=== PATIENT | female | born 1935 | race Caucasian/White ===

== ENCOUNTER 2016-04-21 05:41 | Inpatient (IN) | payer MEDICARE, BC ==
[~2016-04-21 05:41] MED LIST: ADULT LOW DOSE81 MG PO; ASPIRIN EC LOW81 MG PO; ASPIRIN81 M1 PO; ATENOLOL100 MG; ATENOLOL50 M1 PO; CLARITIN10 M8 PO; COUMADIN2 MG; COUMADIN3 M1 PO; COUMADIN3 MG; COUMADIN3 MG PO; COUMADIN5 MG; DIGOXIN125 MC1 PO; DILTIAZEM ER180 MG PO; DILTIAZEM HCL240; DIOVAN160 M1 PO; FOSAMAX70 M1 PO; HYDROCHLOROTHIA25 MG; LANOXIN125 MC3 PO; LEVAQUIN250 MG PO; LISINOPRIL10 MG; LISINOPRIL20 MG; LOVENOX100 MG/1 M SC; MACROBID 100 M100 M1 PO; NUCYNTA50 MG PO; OMEPRAZOLE20 M3 PO; OMEPRAZOLE20 M4 PO; PRILOSEC20 MG; PYRIDIUM200 MG PO; TENORMIN50 M1 PO; TYLENOL EXTRA500 M1 PO; TYLENOL500 MG PO; ULTRACET TABLET1 TAB PO; VITAMIN D32000 UNI3 PO; ZOCOR40 M1 PO; [UNRECOGNIZED DRUG - OTHER]
[2016-04-21 06:29] LABS: PROTHROMBIN TIME 11.3 SECONDS (9.0-13.6)
[2016-04-21 07:02] LABS: URINE BILIRUBIN NEGATIVE (NEG); URINE BLOOD NEGATIVE (NEG); URINE GLUCOSE (UA) NEGATIVE (NEG); URINE KETONE NEGATIVE (NEG); URINE LEUKOCYTE ESTERASE POSITIVE (NEG); URINE NITRITE NEGATIVE (NEG); URINE PROTEIN MODERATE (NEG)
[2016-04-21 07:04] LABS: URINE APPEARANCE CLEAR; URINE COLOR YELLOW
[2016-04-21 07:13] LABS: URINE RBC 0-2 /[HPF] (0-5)
[2016-04-22 05:58] LABS: BASO % 0.1 % (0-2); HCT-HEMATOCRIT 37.1 % (34.0-49.0); HGB-HEMOGLOBIN 11.6 gm/dl (12.0-15.5); IMMATURE GRANULOCYTES ABSOLUTE 0.02 tho/cmm (0-0.03); IMMATURE GRANULOCYTES PERCENT 0.3 % (0-0.3); LYMPH % 9.8 % (20-45); LYMPH ABSOLUTE COUNT 0.8 tho/cmm (0.8-4.5); MCH (MEAN CORPUSCULAR HGB) 28.3 pg (28.0-32.0); MCHC MEAN CORPUSCULAR HGB CONC 31.3 % (32.0-36.0); MCV (MEAN CELL VOLUME) 90.5 fl (82.0-96.0); MEAN PLATELET VOLUME 10.8 cmc (9.4-12.4); MONO % 14.4 % (0-12); MONOCYTE ABSOLUTE COUNT 1.2 tho/cmm (0.0-1.2); NEUTROPHILS % 75.4 % (40-80); PLATELET COUNT 210 tho/cmm (150-450); RED CELL DISTRIBUTION WIDTH 15.6 % (12.4-16.4)
[2016-04-23] MEDS ORDERED: ULTRAM50 M1 PO (15:57)
[2016-04-23] MEDS ORDERED: TYLENOL325 M2 PO (15:59)
[2016-08-18] MEDS ORDERED: COUMADIN3 M1 PO (21:49)
[2016-08-19] MEDS ORDERED: KEFLEX500 M4 PO (00:42)
[2016-08-19] MEDS ORDERED: NORCO 5-325 TA1 EACH PO (00:42)
== END 2016-04-23 18:00 | DRG 470 ==
LOC: SHSC 05:41 → ORE 07:37 → PACU 09:37 → 5EA 10:00
PROC: 0SRD0J9 Replacement of Left Knee Joint with Synthetic Substitute, Cemented, Open Approach (ICD-10-PCS; principal; 2016-04-21)
DX: M17.12 Unilateral primary osteoarthritis, left knee (principal); I27.2 Other secondary pulmonary hypertension; I48.91 Unspecified atrial fibrillation; I25.10 Atherosclerotic heart disease of native coronary artery without angina pectoris; E78.5 Hyperlipidemia, unspecified; I10 Essential (primary) hypertension; I34.0 Nonrheumatic mitral (valve) insufficiency; M81.0 Age-related osteoporosis without current pathological fracture; E55.9 Vitamin D deficiency, unspecified; Z88.0 Allergy status to penicillin; Z88.2 Allergy status to sulfonamides; Z88.8 Allergy status to other drugs, medicaments and biological substances; Z79.82 Long term (current) use of aspirin; Z79.01 Long term (current) use of anticoagulants
CPT/HCPCS: C1776; J0171; J0690; J1650; J1885; J2270; J2405; J2795